=== PATIENT | female | born 1975 | race Caucasian/White ===

== ENCOUNTER → 2018-12-03 | Outpatient (CLI) | payer MEDICAID | END | disposition home or self-care (01) | LOC: RAH 10:00 | PROVIDERS: ATTEND Nurse Practitioner Adult Health | DX: I08.8 Other rheumatic multiple valve diseases (principal) | CPT/HCPCS: 93306 ==

== ENCOUNTER 2019-05-22 06:49 | Day surgery (SDC) | payer MEDICAID ==
[~2019-05-22] VITALS: Ht 165.1 cm; Wt 88.9 kg
[~2019-05-22 06:49] MED LIST: SODIUM CHLORIDE 0.9% 1000ML 1,000 ML IV ONE
[2019-05-22 08:35] VITALS: BP 109/7
[2019-05-22] MEDS ORDERED: CHOL500050 PO (08:45)
[2019-05-22] MEDS ORDERED: NAPR-1023 PO (08:45)
[2019-05-22] MEDS ORDERED: PROPOFOL 10 MG/ML 20ML VIAL IV ONE (09:31)
[2019-05-22 09:43] VITALS: BP 83/43
[2019-05-22 09:48] VITALS: BP 90/51
[2019-05-22 09:53] VITALS: BP 115/55
[2019-05-22 09:59] VITALS: BP 119/80
[2019-05-22 10:03] VITALS: BP 133/89
== END 2019-05-22 10:15 | disposition home or self-care (01) ==
LOC: DAH 06:49 → ENDO 06:49
PROVIDERS: ATTEND Internal Medicine
DX: R10.11 Right upper quadrant pain (principal); K22.8 Other specified diseases of esophagus; K31.89 Other diseases of stomach and duodenum; Z90.49 Acquired absence of other specified parts of digestive tract; Z90.710 Acquired absence of both cervix and uterus; Z79.899 Other long term (current) drug therapy; Z98.51 Tubal ligation status; Z88.8 Allergy status to other drugs, medicaments and biological substances
CPT/HCPCS: 36415; 43239; 82784; 83516 ×4; 86140; 88305; A4215; A4221; A4222; A4223; A4606; A4620; A4663; J2704; J7030